=== PATIENT | female | born 1960 | race Hispanic/Latino ===

== ENCOUNTER 2020-04-09 00:11 | Emergency (ER) | payer MEDICARE ==
[2020-04-09] MEDS ORDERED: METHYLPREDNISOLONE SOD SUCC 125MG/2ML VIAL ONE (00:19)
== END 2020-04-09 01:05 | disposition home or self-care (01) ==
LOC: EDH 00:11
DX: S93.432A Sprain of tibiofibular ligament of left ankle, initial encounter (principal); S93.622A Sprain of tarsometatarsal ligament of left foot, initial encounter; W01.0XXA Fall on same level from slipping, tripping and stumbling without subsequent striking against object, initial encounter; Y93.89 Activity, other specified; Y92.098 Other place in other non-institutional residence as the place of occurrence of the external cause; Y99.8 Other external cause status
CPT/HCPCS: 29515; 73600; 73630; 96372; 99284; J2930